=== PATIENT | male | born 1980 | race Caucasian/White ===

== ENCOUNTER 2021-10-30 07:48 | Inpatient (IN) | payer OTHER ==
[~2021-10-30] VITALS: Ht 177.8 cm; Wt 106.8 kg
[2021-10-30 08:19] LABS: CLARITY,URINE CLOUDY (Clear); COLOR,URINE YELLOW (Yellow); GLUCOSE, URINE 100 mg/dl (Neg); KETONES,URINE 15 mg/dl (Neg); LEUKOCYTE ESTERASE ,URINE NEGATIVE (Neg); NITRITES, URINE NEGATIVE (Neg); OCCULT BLOOD,URINE MODERATE (Neg); PROTEIN,URINE 30 mg/dl (Neg)
[2021-10-30 08:22] LABS: BASOPHILS % (AUTO) 0.2 % (0-1); EOSINOPHILS % (AUTO) 0 % (0-6); HEMATOCRIT 46.3 % (42.0-52.0); HEMOGLOBIN 16.1 g/dl (14.0-17.9); LYMPHOCYTES # (AUTO) 0.6 X10'3 (1.1-4.8); LYMPHOCYTES % (AUTO) 3.8 % (21-51); MEAN CORPUSCULAR HEMOGLOBIN 30.9 PG (27.0-31.0); MEAN CORPUSCULAR HGB CONC 34.7 g/dL (33.0-36.5); MEAN CORPUSCULAR VOLUME 89.3 FL (78-98); MEAN PLATELET VOLUME 7.6 FL (7.4-10.4); MONOCYTES # (AUTO) 0.8 X10'3 (0-0.9); MONOCYTES % (AUTO) 4.9 % (2-12); NEUTROPHILS # (AUTO) 14.6 X10'3 (1.8-7.7); NEUTROPHILS % (AUTO) 91.1 % (42-75); PLATELET COUNT 174 X10'3 (140-440); RED BLOOD COUNT 5.19 X10'6 (4.70-6.10); RED CELL DISTRIBUTION WIDTH 13.2 % (11.5-14.5); WHITE BLOOD COUNT 16.1 X10'3 (4.5-11.0)
[2021-10-30 08:28] LABS: UA COLLECTION TYPE CLN CATCH MIDSTREAM
[2021-10-30 08:29] LABS: HYALINE CASTS 0-3 /LPF (NEGATIVE); MUCUS STRANDS MODERATE /LPF (Neg); SQUAMOUS EPITHELIAL CELL,UR FEW /LPF (FEW)
[2021-10-30 08:30] LABS: BACTERIA,URINE 1+ /HPF (Neg); RBC,URINE 0-2 /HPF (0-2); WBC,URINE 0-4 /HPF (0-4)
[2021-10-30 08:35] LABS: ALANINE AMINOTRANSFERASE 61 U/L (12-78); ALBUMIN 4.1 G/DL (3.4-5.0); ALKALINE PHOSPHATASE 73 IU/L (46-116); ANION GAP 14 (8-16); ASPARTATE AMINO TRANSFERASE 28 U/L (10-37); BILIRUBIN,TOTAL 1.2 MG/DL (0.1-1.0); BLOOD UREA NITROGEN 22 MG/DL (7-18); BUN/CREATININE RATIO 15.3 (5.4-32.0); CHLORIDE 102 MMOL/L (99-107); CREATININE 1.44 MG/DL (0.60-1.10); GLUCOSE 140 MG/DL (70-104); LIPASE < 50 U/L (73-393); POTASSIUM 3.6 MMOL/L (3.5-5.1); SODIUM 140 MMOL/L (135-145); TOTAL CARBON DIOXIDE 24.3 MMOL/L (24-32); TOTAL PROTEIN 8.4 G/DL (6.4-8.2); eGFR 54 ML/MIN
[2021-10-30] MEDS ORDERED: piperacillin/tazo 3.375gm/50ml 50 ML IV ONE (08:40)
[2021-10-30] MEDS ORDERED: ondansetron/PF 4mg/2ml inj IV ONE (08:40)
[2021-10-30] MEDS ORDERED: ketorolac trometh. 30mg/ml inj. IV ONE (08:40)
[2021-10-30] MEDS ORDERED: normal saline 1000ML IV soln IVB ONE ×2 (08:40)
[2021-10-30] MEDS ORDERED: albuterol 2.5 MG/3 ML nebule NEB ONE (09:45)
[2021-10-30] MEDS ORDERED: magnesium 2GM in 50ml NS 50 ML IV PRN (10:20)
[2021-10-30] MEDS ORDERED: potassium Cl 20 mEq SR tablet PO PRN (10:20)
[2021-10-30] MEDS ORDERED: acetaminophen 650mg rectal suppository RC PRN (10:20)
[2021-10-30] MEDS ORDERED: bisacodyl 10mg suppository rectal RC PRN (10:20)
[2021-10-30] MEDS ORDERED: mag hydrox/Alum hydrox/simeth 30ml oral suspension PO PRN (10:20)
[2021-10-30] MEDS ORDERED: magnesium hydroxide 30ml (MOM) UD suspension PO PRN (10:20)
[2021-10-30] MEDS ORDERED: magnesium Cl slow-release 64mg tablet PO PRN (10:20)
[2021-10-30] MEDS ORDERED: HYDROcodone/acetaminophen 5mg/325mg tablet PO PRN (10:20)
[2021-10-30] MEDS ORDERED: HYDROmorphone/PF 0.2 MG/ML SYRINGE IV PRN (10:20)
[2021-10-30] MEDS ORDERED: acetaminophen 325mg tablet PO PRN (10:20)
[2021-10-30] MEDS ORDERED: magnesium 4gm in 100ml NS 100 ML IV PRN (10:20)
[2021-10-30] MEDS ORDERED: ondansetron 4mg rapidly disintigrating tab PO PRN (10:20)
[2021-10-30] MEDS ORDERED: NO HOME MEDS (10:26)
[2021-10-30 10:41] LABS: MAGNESIUM 1.6 MG/DL (1.5-2.4)
[2021-10-30] MEDS: metoclopramide 5 mg/ml inj IV PRN (11:30)
[2021-10-30] MEDS: piperacillin/tazo 3.375gm/50ml 50 ML IV SCH (16:45)
[2021-10-30] MEDS: normal saline 1000ml 1,000 ML IV SCH ×2 (16:45→18:58)
[2021-10-30] MEDS: ondansetron/PF 4mg/2ml inj IV PRN (16:56)
[2021-10-30] MEDS: HYDROmorphone inj. 0.5 MG/0.5 ML DISP.SYRIN IV PRN ×2 (17:04→21:39)
[2021-10-30] MEDS: acetaminophen 325mg tablet PO PRN (17:12)
[2021-10-30] MEDS: docusate sod 100mg capsule PO SCH (20:00)
[2021-10-30] MEDS: K and/or MAG REPLACEMENT MC SCH (20:00)
[2021-10-30] MEDS ORDERED: temazepam 15mg capsule PO PRN (21:00)
[2021-10-30 22:35] VITALS: BP 133/74
[2021-10-31] MEDS: normal saline 1000ml 1,000 ML IV SCH ×3 (00:19→15:28)
[2021-10-31] MEDS: piperacillin/tazo 3.375gm/50ml 50 ML IV SCH ×3 (00:20→15:27)
[2021-10-31] MEDS: HYDROmorphone inj. 0.5 MG/0.5 ML DISP.SYRIN IV PRN ×2 (01:36→05:26)
[2021-10-31] MEDS: ondansetron/PF 4mg/2ml inj IV PRN (05:28)
[2021-10-31 06:00] VITALS: BP 133/73
[2021-10-31 07:52] LABS: BASOPHILS % (AUTO) 0.2 % (0-1); EOSINOPHILS % (AUTO) 0 % (0-6); HEMOGLOBIN 12.9 g/dl (14.0-17.9); LYMPHOCYTES # (AUTO) 0.8 X10'3 (1.1-4.8); LYMPHOCYTES % (AUTO) 6.5 % (21-51); MEAN CORPUSCULAR HEMOGLOBIN 30.4 PG (27.0-31.0); MEAN CORPUSCULAR HGB CONC 33.9 g/dL (33.0-36.5); MEAN CORPUSCULAR VOLUME 89.5 FL (78-98); MEAN PLATELET VOLUME 8.4 FL (7.4-10.4); MONOCYTES # (AUTO) 0.8 X10'3 (0-0.9); MONOCYTES % (AUTO) 6.6 % (2-12); NEUTROPHILS # (AUTO) 10.2 X10'3 (1.8-7.7); NEUTROPHILS % (AUTO) 86.7 % (42-75); PLATELET COUNT 139 X10'3 (140-440); RED BLOOD COUNT 4.24 X10'6 (4.70-6.10); RED CELL DISTRIBUTION WIDTH 12.7 % (11.5-14.5); WHITE BLOOD COUNT 11.7 X10'3 (4.5-11.0)
[2021-10-31] MEDS: docusate sod 100mg capsule PO SCH ×2 (08:00→20:00)
[2021-10-31 08:08] LABS: ALANINE AMINOTRANSFERASE 43 U/L (12-78); ALBUMIN 2.9 G/DL (3.4-5.0); ALBUMIN/GLOBULIN RATIO 0.8 (1.1-1.5); ALKALINE PHOSPHATASE 56 IU/L (46-116); ANION GAP 12 (8-16); ASPARTATE AMINO TRANSFERASE 26 U/L (10-37); BILIRUBIN,TOTAL 1.1 MG/DL (0.1-1.0); BLOOD UREA NITROGEN 15 MG/DL (7-18); BUN/CREATININE RATIO 11.3 (5.4-32.0); CALCIUM 7.9 MG/DL (8.5-10.1); CHLORIDE 103 MMOL/L (99-107); CREATININE 1.33 MG/DL (0.60-1.10); GLUCOSE 118 MG/DL (70-104); MAGNESIUM 1.7 MG/DL (1.5-2.4); POTASSIUM 3.2 MMOL/L (3.5-5.1); SODIUM 139 MMOL/L (135-145); TOTAL CARBON DIOXIDE 23.6 MMOL/L (24-32); TOTAL PROTEIN 6.6 G/DL (6.4-8.2); eGFR 60 ML/MIN
[2021-10-31] MEDS: K and/or MAG REPLACEMENT MC SCH ×2 (08:46→20:00)
[2021-10-31] MEDS: metoclopramide 5 mg/ml inj IV PRN (08:47)
--- NOTE | 2021-10-31 08:58 | NUR ---
PAGER ID: [phone] MESSAGE: Jose Serrano [phone] Pt.'s abdominal pain not controlled by .5 mg dilaudid q4h. Do you want an IV breakthrough pain medication? Pt. NPO. Melanie [phone]
[2021-10-31] MEDS: HYDROmorphone 1 mg/ml syringe IV PRN ×3 (09:15→19:05)
[2021-10-31 10:00] VITALS: BP 148/67
[2021-10-31] MEDS: potassium CL 10mEq/100ml bag 100 ML IV PRN ×2 (12:38→15:28)
[2021-10-31 15:00] VITALS: BP 154/79
[2021-10-31] MEDS: acetaminophen 325mg tablet PO PRN (15:52)
[2021-10-31] MEDS: potassium Cl 20 mEq SR tablet PO PRN ×2 (15:52→20:44)
--- NOTE | 2021-10-31 17:12 | NUR ---
PAGER ID: [phone] MESSAGE: Jose Sanchez [id number] Pt. has had high fevers throughout day. Rectal Tylenol given while pt NPO earlier and was effective., however pt. received PO Tylenol 1hr ago for 102 fever and oral temp is now 102.8. Please advise. Melanie [phone]
[2021-10-31] MEDS: ibuprofen tablet 400 MG TABLET PO PRN ×2 (17:44→17:46)
[2021-10-31 18:00] VITALS: BP 120/70
--- NOTE | 2021-10-31 18:15 | NUR ---
Patient in room [facility]TH[facility] 4024. I have received report from ALTAF Navarro and had the opportunity to ask questions and assume patient care.
--- NOTE | 2021-10-31 18:21 | NUR ---
Gave report to Brandy SOLITARIO.
[2021-10-31 22:00] VITALS: BP 130/79
[2021-10-31] MEDS: HYDROcodone/acetaminophen 10/325mg tab PO PRN (23:08)
[2021-11-01] MEDS: normal saline 1000ml 1,000 ML IV SCH ×3 (00:30→16:50)
[2021-11-01] MEDS: piperacillin/tazo 3.375gm/50ml 50 ML IV SCH ×3 (00:39→16:20)
[2021-11-01 02:00] VITALS: BP 125/69
[2021-11-01] MEDS: HYDROcodone/acetaminophen 10/325mg tab PO PRN ×3 (04:55→16:23)
[2021-11-01 06:00] VITALS: BP 115/71
--- NOTE | 2021-11-01 06:07 | NUR ---
Problems reprioritized. Patient report given, questions answered & plan of care reviewed with ALTAF Navarro.
[2021-11-01 07:13] LABS: BASOPHILS % (AUTO) 0.1 % (0-1); EOSINOPHILS % (AUTO) 0.3 % (0-6); HEMATOCRIT 36.5 % (42.0-52.0); HEMOGLOBIN 12.5 g/dl (14.0-17.9); LYMPHOCYTES # (AUTO) 0.6 X10'3 (1.1-4.8); LYMPHOCYTES % (AUTO) 5.5 % (21-51); MEAN CORPUSCULAR HEMOGLOBIN 30.1 PG (27.0-31.0); MEAN CORPUSCULAR HGB CONC 34.2 g/dL (33.0-36.5); MEAN CORPUSCULAR VOLUME 88.1 FL (78-98); MEAN PLATELET VOLUME 8.3 FL (7.4-10.4); MONOCYTES # (AUTO) 0.9 X10'3 (0-0.9); MONOCYTES % (AUTO) 8.4 % (2-12); NEUTROPHILS # (AUTO) 8.8 X10'3 (1.8-7.7); NEUTROPHILS % (AUTO) 85.7 % (42-75); PLATELET COUNT 137 X10'3 (140-440); RED BLOOD COUNT 4.14 X10'6 (4.70-6.10); WHITE BLOOD COUNT 10.3 X10'3 (4.5-11.0)
[2021-11-01] MEDS: pantoprazole 40mg Tablet.DR PO SCH (07:13)
[2021-11-01] MEDS: docusate sod 100mg capsule PO SCH ×2 (07:42→20:00)
[2021-11-01 07:52] LABS: ALANINE AMINOTRANSFERASE 36 U/L (12-78); ALBUMIN 2.6 G/DL (3.4-5.0); ALBUMIN/GLOBULIN RATIO 0.7 (1.1-1.5); ALKALINE PHOSPHATASE 56 IU/L (46-116); ANION GAP 11 (8-16); ASPARTATE AMINO TRANSFERASE 26 U/L (10-37); BILIRUBIN,TOTAL 1.1 MG/DL (0.1-1.0); BLOOD UREA NITROGEN 15 MG/DL (7-18); CALCIUM 8.1 MG/DL (8.5-10.1); CHLORIDE 105 MMOL/L (99-107); CREATININE 1.15 MG/DL (0.60-1.10); GLUCOSE 107 MG/DL (70-104); POTASSIUM 3.2 MMOL/L (3.5-5.1); SODIUM 140 MMOL/L (135-145); TOTAL CARBON DIOXIDE 24.3 MMOL/L (24-32); TOTAL PROTEIN 6.3 G/DL (6.4-8.2); eGFR 70 ML/MIN
[2021-11-01] MEDS: potassium Cl 20 mEq SR tablet PO PRN ×4 (08:34→21:26)
[2021-11-01] MEDS: K and/or MAG REPLACEMENT MC SCH ×2 (08:37→20:00)
[2021-11-01 10:00] VITALS: BP 139/78
--- NOTE | 2021-11-01 10:28 | NUR ---
Nutrition consult: Pt admitted w/ acute diverticulitis with microperforation per EMR. Provided pt w/ written and verbal low fiber nutrition education w/ RD contact info. Addendum: 11/01/21 at [address] Amended: Links added.
[2021-11-01] MEDS ORDERED: ALBUTEROL INHALER 1 PUFF/90 MCG INHALER IH PRN (12:55)
[2021-11-01] MEDS: HYDROmorphone 1 mg/ml syringe IV PRN ×2 (12:58→21:26)
[2021-11-01 14:00] VITALS: BP 113/54
--- NOTE | 2021-11-01 18:08 | NUR ---
Gave report to Sydni SOLITARIO.
[2021-11-01 19:00] VITALS: BP 136/77
[2021-11-01 22:00] VITALS: BP 137/71
[2021-11-02] MEDS: acetaminophen 325mg tablet PO PRN (00:27)
[2021-11-02] MEDS: piperacillin/tazo 3.375gm/50ml 50 ML IV SCH ×3 (00:27→15:49)
[2021-11-02] MEDS: HYDROcodone/acetaminophen 10/325mg tab PO PRN ×4 (00:27→15:54)
[2021-11-02] MEDS: normal saline 1000ml 1,000 ML IV SCH ×2 (02:20→11:15)
[2021-11-02 06:50] LABS: BASOPHILS % (AUTO) 0.3 % (0-1); EOSINOPHILS % (AUTO) 0.2 % (0-6); HEMOGLOBIN 12.4 g/dl (14.0-17.9); LYMPHOCYTES # (AUTO) 0.7 X10'3 (1.1-4.8); LYMPHOCYTES % (AUTO) 7.5 % (21-51); MEAN CORPUSCULAR HGB CONC 34.6 g/dL (33.0-36.5); MEAN CORPUSCULAR VOLUME 89.6 FL (78-98); MEAN PLATELET VOLUME 8.7 FL (7.4-10.4); MONOCYTES # (AUTO) 0.9 X10'3 (0-0.9); MONOCYTES % (AUTO) 10.3 % (2-12); NEUTROPHILS # (AUTO) 7.4 X10'3 (1.8-7.7); NEUTROPHILS % (AUTO) 81.7 % (42-75); PLATELET COUNT 141 X10'3 (140-440); RED BLOOD COUNT 4.02 X10'6 (4.70-6.10); RED CELL DISTRIBUTION WIDTH 13.3 % (11.5-14.5)
[2021-11-02 07:17] LABS: ALANINE AMINOTRANSFERASE 35 U/L (12-78); ALBUMIN 2.4 G/DL (3.4-5.0); ALBUMIN/GLOBULIN RATIO 0.7 (1.1-1.5); ALKALINE PHOSPHATASE 58 IU/L (46-116); ANION GAP 8 (8-16); ASPARTATE AMINO TRANSFERASE 28 U/L (10-37); BILIRUBIN,TOTAL 0.7 MG/DL (0.1-1.0); BLOOD UREA NITROGEN 10 MG/DL (7-18); BUN/CREATININE RATIO 9.4 (5.4-32.0); CALCIUM 7.8 MG/DL (8.5-10.1); CHLORIDE 106 MMOL/L (99-107); CREATININE 1.06 MG/DL (0.60-1.10); GLUCOSE 115 MG/DL (70-104); MAGNESIUM 1.7 MG/DL (1.5-2.4); POTASSIUM 3.7 MMOL/L (3.5-5.1); SODIUM 140 MMOL/L (135-145); eGFR 77 ML/MIN
[2021-11-02 07:30] VITALS: BP 132/79
[2021-11-02] MEDS: K and/or MAG REPLACEMENT MC SCH (08:00)
[2021-11-02] MEDS: HYDROmorphone 1 mg/ml syringe IV PRN (08:21)
[2021-11-02] MEDS: docusate sod 100mg capsule PO SCH (08:44)
[2021-11-02] MEDS: pantoprazole 40mg Tablet.DR PO SCH (08:44)
[2021-11-02 10:59] VITALS: BP 129/74
[2021-11-02 15:00] VITALS: BP 129/87
--- NOTE | 2021-11-02 15:21 | NUR ---
PAGER ID: [phone] MESSAGE: [id number] Sanchez W: temp at 1500 was 98.3 thanks! portia [phone]
--- NOTE | 2021-11-02 15:56 | NUR ---
Page sent to RT.... [id number] Madonna Bradford: patient requesting PRN breathing treatment. thanks! :) portia
[2021-11-02] MEDS ORDERED: METR-159 PO (16:33)
[2021-11-02] MEDS ORDERED: ALBU6.7H9 IH (16:33)
[2021-11-02] MEDS ORDERED: CIPR-447 PO (16:33)
--- NOTE | 2021-11-02 16:41 | NUR ---
PAGER ID: [phone] MESSAGE: [id number] Madonna Bradford: please call regarding this DC. thanks! portia [phone]
[2021-11-02] MEDS ORDERED: HYDR-3965 PO (16:47)
--- NOTE | 2021-11-02 17:14 | NUR ---
Patient stable and appropriate for discharge home with family. IV removed, all belongings taken from room. New RX e-scripted to preferred pharmacy, pain medication RX given to patient. All discharge instructions and education given and reviewed with patient, all questions answered.
== END 2021-11-02 17:10 | disposition home or self-care (01) | DRG 392 ==
LOC: ER 07:48 → ED HOLD 10:23 → ORTHO 4S 22:20
PROVIDERS: ADMIT Family Medicine; ATTEND Family Medicine
DX: K57.20 Diverticulitis of large intestine with perforation and abscess without bleeding (principal); N17.9 Acute kidney failure, unspecified; Z20.822 Contact with and (suspected) exposure to COVID-19; F17.200 Nicotine dependence, unspecified, uncomplicated; E87.6 Hypokalemia; N18.9 Chronic kidney disease, unspecified; R06.00 Dyspnea, unspecified
CPT/HCPCS: 36415; 71045; 74176; 80053; 81001; 82948; 83605; 83690; 83735; 84145; 85025; 87040; 87081; 87635; 94640; 99285; G0378; J1170; J1885; J2405; J2543; J2765; J3480; J7030

== ENCOUNTER 2021-12-16 10:10 | Inpatient (IN) | payer OTHER ==
[~2021-12-16] VITALS: Ht 177.8 cm; Wt 95.1 kg
[~2021-12-16 10:10] MED LIST: ALBU6.7H9 IH
[2021-12-16 10:58] LABS: CLARITY,URINE CLEAR (Clear); GLUCOSE, URINE NEGATIVE (Neg); KETONES,URINE >=80 mg/dl (Neg); LEUKOCYTE ESTERASE ,URINE NEGATIVE (Neg); OCCULT BLOOD,URINE TRACE-INTACT (Neg); PROTEIN,URINE 100 mg/dl (Neg)
[2021-12-16 11:03] LABS: BASOPHILS % (AUTO) 0.3 % (0-1); EOSINOPHILS % (AUTO) 0.2 % (0-6); HEMATOCRIT 43.1 % (42.0-52.0); HEMOGLOBIN 14.8 g/dl (14.0-17.9); LYMPHOCYTES # (AUTO) 0.9 X10'3 (1.1-4.8); LYMPHOCYTES % (AUTO) 7.4 % (21-51); MEAN CORPUSCULAR HEMOGLOBIN 30.8 PG (27.0-31.0); MEAN CORPUSCULAR HGB CONC 34.3 g/dL (33.0-36.5); MEAN CORPUSCULAR VOLUME 89.7 FL (78-98); MEAN PLATELET VOLUME 7.2 FL (7.4-10.4); MONOCYTES # (AUTO) 0.3 X10'3 (0-0.9); MONOCYTES % (AUTO) 2.4 % (2-12); NEUTROPHILS # (AUTO) 11.1 X10'3 (1.8-7.7); NEUTROPHILS % (AUTO) 89.7 % (42-75); PLATELET COUNT 225 X10'3 (140-440); RED BLOOD COUNT 4.81 X10'6 (4.70-6.10); RED CELL DISTRIBUTION WIDTH 14.3 % (11.5-14.5); WHITE BLOOD COUNT 12.4 X10'3 (4.5-11.0)
[2021-12-16 11:05] LABS: COLOR,URINE BROWN (Yellow); UA COLLECTION TYPE CLN CATCH MIDSTREAM
[2021-12-16 11:06] LABS: BACTERIA,URINE NONE SEEN /HPF (Neg); MUCUS STRANDS FEW /LPF (Neg); NITRITES, URINE NEGATIVE (Neg); RBC,URINE 0-2 /HPF (0-2); SQUAMOUS EPITHELIAL CELL,UR NONE SEEN /LPF (FEW); WBC,URINE 0-4 /HPF (0-4)
[2021-12-16 11:30] LABS: ALANINE AMINOTRANSFERASE 35 U/L (12-78); ALBUMIN 3.9 G/DL (3.4-5.0); ALKALINE PHOSPHATASE 67 IU/L (46-116); ANION GAP 9 (8-16); ASPARTATE AMINO TRANSFERASE 20 U/L (10-37); BILIRUBIN,TOTAL 1.4 MG/DL (0.1-1.0); BLOOD UREA NITROGEN 14 MG/DL (7-18); BUN/CREATININE RATIO 11.9 (5.4-32.0); CALCIUM 9.1 MG/DL (8.5-10.1); CHLORIDE 104 MMOL/L (99-107); CREATININE 1.18 MG/DL (0.60-1.10); GLUCOSE 106 MG/DL (70-104); LIPASE < 50 U/L (73-393); POTASSIUM 4.1 MMOL/L (3.5-5.1); SODIUM 139 MMOL/L (135-145); TOTAL CARBON DIOXIDE 25.6 MMOL/L (24-32); TOTAL PROTEIN 7.9 G/DL (6.4-8.2); eGFR 68 ML/MIN
[2021-12-16] MEDS ORDERED: ondansetron/PF 4mg/2ml inj IV ONE (12:25)
[2021-12-16] MEDS ORDERED: morphine 4 MG/ML inj SYRINge IV ONE ×2 (12:25→13:40)
[2021-12-16] MEDS ORDERED: normal saline 1000ML IV soln IVB ONE (12:25)
[2021-12-16] MEDS ORDERED: piperacillin/tazo 3.375gm/50ml 50 ML IV ONE (14:25)
[2021-12-16] MEDS ORDERED: acetaminophen 650mg rectal suppository RC PRN (14:40)
[2021-12-16] MEDS ORDERED: magnesium Cl slow-release 64mg tablet PO PRN (14:40)
[2021-12-16] MEDS ORDERED: POTASSIUM BICARB 20meq eff tab 20 MEQ TABLET.EFF PO PRN ×2 (14:40)
[2021-12-16] MEDS ORDERED: mag hydrox/Alum hydrox/simeth 30ml oral suspension PO PRN (14:40)
[2021-12-16] MEDS ORDERED: potassium CL 10mEq/100ml bag 100 ML IV PRN (14:40)
[2021-12-16] MEDS ORDERED: magnesium 4gm in 100ml NS 100 ML IV PRN (14:40)
[2021-12-16] MEDS ORDERED: morphine 2 MG/ML inj. syringe IV PRN ×2 (14:40)
[2021-12-16] MEDS ORDERED: acetaminophen 325mg tablet PO PRN (14:40)
[2021-12-16] MEDS ORDERED: HYDROcodone/acetaminophen 5mg/325mg tablet PO PRN (14:40)
[2021-12-16] MEDS ORDERED: magnesium hydroxide 30ml (MOM) UD suspension PO PRN (14:40)
[2021-12-16] MEDS ORDERED: bisacodyl 10mg suppository rectal RC PRN (14:40)
[2021-12-16] MEDS ORDERED: magnesium 2GM in 50ml NS 50 ML IV PRN (14:40)
[2021-12-16] MEDS ORDERED: diphenhydrAMINE 50 mg/ml inj IV PRN (14:40)
[2021-12-16 15:15] LABS: HEMOGLOBIN A1C 5.5 % (4.5-6.2)
[2021-12-16] MEDS: normal saline 1000ml 1,000 ML IV SCH ×2 (16:24→20:23)
--- NOTE | 2021-12-16 16:25 | NUR ---
GAVE REPORT TO ALTAF STEVE
[2021-12-16] MEDS: HYDROcodone/acetaminophen 10/325mg tab PO PRN (17:21)
[2021-12-16 18:00] VITALS: BP 130/73
[2021-12-16] MEDS ORDERED: piperacillin/tazo 3.375gm/50ml 50 ML IV SCH (20:00)
[2021-12-16] MEDS: K and/or MAG REPLACEMENT MC SCH (20:00)
[2021-12-16] MEDS: docusate sod 100mg capsule PO SCH (20:00)
[2021-12-16] MEDS: lactobacillus rhamnosus 10,000 MMU CELLS/CAPSULE PO SCH (20:21)
[2021-12-16] MEDS: heparin, porcine 5000 units/ml vial SQ SCH (20:22)
[2021-12-16] MEDS ORDERED: ALBUTEROL INHALER 1 PUFF/90 MCG INHALER IH PRN (20:30)
[2021-12-16 22:00] VITALS: BP 144/64
[2021-12-16] MEDS: piperacillin/tazo 3.375gm/50ml 50 ML IV SCH (22:12)
[2021-12-17] MEDS: ondansetron/PF 4mg/2ml inj IV PRN ×3 (00:07→16:50)
[2021-12-17] MEDS: HYDROmorphone 1 mg/ml syringe IV PRN ×4 (00:11→21:04)
[2021-12-17] MEDS: acetaminophen 325mg tablet PO PRN ×3 (01:56→17:58)
[2021-12-17] MEDS: piperacillin/tazo 3.375gm/50ml 50 ML IV SCH ×3 (05:49→22:05)
[2021-12-17 06:00] VITALS: BP 132/66
[2021-12-17 06:40] LABS: BASOPHILS % (AUTO) 0.2 % (0-1); EOSINOPHILS % (AUTO) 0 % (0-6); HEMATOCRIT 38.9 % (42.0-52.0); HEMOGLOBIN 13.1 g/dl (14.0-17.9); LYMPHOCYTES # (AUTO) 0.7 X10'3 (1.1-4.8); LYMPHOCYTES % (AUTO) 4.8 % (21-51); MEAN CORPUSCULAR HEMOGLOBIN 30.1 PG (27.0-31.0); MEAN CORPUSCULAR HGB CONC 33.8 g/dL (33.0-36.5); MEAN CORPUSCULAR VOLUME 89.2 FL (78-98); MEAN PLATELET VOLUME 8.6 FL (7.4-10.4); MONOCYTES # (AUTO) 0.4 X10'3 (0-0.9); NEUTROPHILS # (AUTO) 13.2 X10'3 (1.8-7.7); PLATELET COUNT 205 X10'3 (140-440); RED BLOOD COUNT 4.36 X10'6 (4.70-6.10); RED CELL DISTRIBUTION WIDTH 14.4 % (11.5-14.5); WHITE BLOOD COUNT 14.3 X10'3 (4.5-11.0)
[2021-12-17 07:03] LABS: ALANINE AMINOTRANSFERASE 26 U/L (12-78); ALBUMIN 3.1 G/DL (3.4-5.0); ALBUMIN/GLOBULIN RATIO 0.7 (1.1-1.5); ALKALINE PHOSPHATASE 67 IU/L (46-116); ANION GAP 13 (8-16); ASPARTATE AMINO TRANSFERASE 16 U/L (10-37); BILIRUBIN,TOTAL 1.1 MG/DL (0.1-1.0); BLOOD UREA NITROGEN 12 MG/DL (7-18); BUN/CREATININE RATIO 10.7 (5.4-32.0); CALCIUM 8.5 MG/DL (8.5-10.1); CHLORIDE 103 MMOL/L (99-107); CHOL/HDL RATIO 4.6 (0.00-4.99); CHOLESTEROL 151 MG/DL (0-200); CREATININE 1.12 MG/DL (0.60-1.10); GLUCOSE 89 MG/DL (70-104); HDL CHOLESTEROL 33 MG/DL (35-60); LDL CHOLESTEROL 63 MG/DL (50-100); MAGNESIUM 1.7 MG/DL (1.5-2.4); PHOSPHORUS 2.7 MG/DL (2.3-4.5); POTASSIUM 3.5 MMOL/L (3.5-5.1); SODIUM 137 MMOL/L (135-145); TOTAL CARBON DIOXIDE 20.8 MMOL/L (24-32); TOTAL PROTEIN 7.3 G/DL (6.4-8.2); TRIGLYCERIDES 126 MG/DL (20-135); eGFR 73 ML/MIN
--- NOTE | 2021-12-17 07:10 | NUR ---
Patient in room [facility]TH[facility] 4023. I have received report from manuela rn and had the opportunity to ask questions and assume patient care.
[2021-12-17] MEDS: docusate sod 100mg capsule PO SCH ×2 (07:54→20:00)
[2021-12-17] MEDS: lactobacillus rhamnosus 10,000 MMU CELLS/CAPSULE PO SCH ×2 (07:57→19:44)
[2021-12-17] MEDS: heparin, porcine 5000 units/ml vial SQ SCH ×2 (07:57→19:45)
[2021-12-17] MEDS: K and/or MAG REPLACEMENT MC SCH ×2 (08:00→20:00)
[2021-12-17] MEDS: normal saline 1000ml 1,000 ML IV SCH ×2 (10:40→20:40)
[2021-12-17 10:54] VITALS: BP 129/66
[2021-12-17 13:31] VITALS: BP 112/67
--- NOTE | 2021-12-17 14:00 | NUR ---
called pop and let him know of pt fever, antibiotics he is on, and about consulting him for surgery. states no surgery for now, seeing if antibiotics help with inflammation.
--- NOTE | 2021-12-17 17:48 | NUR ---
Page Sent promotional table spacer PAGER ID: [phone] MESSAGE: [id number] Sanchez, pt has spiked another fever of 102.1, pt had micro perf back in october. do you want a CT scan with contrast.
[2021-12-17 18:00] VITALS: BP 136/73
--- NOTE | 2021-12-17 18:18 | NUR ---
Problems reprioritized. Patient report given, questions answered & plan of care reviewed with manuela marquez.
[2021-12-17 22:00] VITALS: BP 128/61
[2021-12-18] MEDS: HYDROmorphone 1 mg/ml syringe IV PRN ×5 (01:08→23:44)
[2021-12-18] MEDS: ondansetron/PF 4mg/2ml inj IV PRN ×2 (05:54→16:46)
[2021-12-18] MEDS: piperacillin/tazo 3.375gm/50ml 50 ML IV SCH ×3 (05:55→21:57)
[2021-12-18 06:00] VITALS: BP 157/78
[2021-12-18 06:10] LABS: BASOPHILS % (AUTO) 0.3 % (0-1); EOSINOPHILS % (AUTO) 0.2 % (0-6); HEMATOCRIT 36.8 % (42.0-52.0); HEMOGLOBIN 12.6 g/dl (14.0-17.9); LYMPHOCYTES # (AUTO) 0.9 X10'3 (1.1-4.8); LYMPHOCYTES % (AUTO) 9.5 % (21-51); MEAN CORPUSCULAR HEMOGLOBIN 30.6 PG (27.0-31.0); MEAN CORPUSCULAR HGB CONC 34.3 g/dL (33.0-36.5); MEAN CORPUSCULAR VOLUME 89.4 FL (78-98); MEAN PLATELET VOLUME 8.2 FL (7.4-10.4); MONOCYTES # (AUTO) 0.5 X10'3 (0-0.9); MONOCYTES % (AUTO) 4.8 % (2-12); NEUTROPHILS # (AUTO) 8.3 X10'3 (1.8-7.7); NEUTROPHILS % (AUTO) 85.2 % (42-75); PLATELET COUNT 200 X10'3 (140-440); RED BLOOD COUNT 4.12 X10'6 (4.70-6.10); RED CELL DISTRIBUTION WIDTH 13.9 % (11.5-14.5); WHITE BLOOD COUNT 9.8 X10'3 (4.5-11.0)
[2021-12-18 06:19] LABS: ALANINE AMINOTRANSFERASE 19 U/L (12-78); ALBUMIN 2.8 G/DL (3.4-5.0); ALBUMIN/GLOBULIN RATIO 0.6 (1.1-1.5); ALKALINE PHOSPHATASE 69 IU/L (46-116); ANION GAP 10 (8-16); ASPARTATE AMINO TRANSFERASE 16 U/L (10-37); BLOOD UREA NITROGEN 14 MG/DL (7-18); BUN/CREATININE RATIO 13.5 (5.4-32.0); CALCIUM 8.8 MG/DL (8.5-10.1); CHLORIDE 103 MMOL/L (99-107); CREATININE 1.04 MG/DL (0.60-1.10); GLUCOSE 93 MG/DL (70-104); MAGNESIUM 1.9 MG/DL (1.5-2.4); PHOSPHORUS 2.5 MG/DL (2.3-4.5); POTASSIUM 3.3 MMOL/L (3.5-5.1); SODIUM 137 MMOL/L (135-145); TOTAL CARBON DIOXIDE 24.3 MMOL/L (24-32); TOTAL PROTEIN 7.2 G/DL (6.4-8.2); eGFR 79 ML/MIN
[2021-12-18] MEDS: normal saline 1000ml 1,000 ML IV SCH ×2 (06:40→16:40)
--- NOTE | 2021-12-18 06:54 | NUR ---
Patient in room [facility]TH[facility] 4023. I have received report from manuela rn and had the opportunity to ask questions and assume patient care.
[2021-12-18] MEDS: K and/or MAG REPLACEMENT MC SCH ×2 (08:00→20:00)
[2021-12-18] MEDS: lactobacillus rhamnosus 10,000 MMU CELLS/CAPSULE PO SCH ×2 (08:12→20:00)
[2021-12-18] MEDS: heparin, porcine 5000 units/ml vial SQ SCH ×2 (08:12→20:44)
[2021-12-18] MEDS: docusate sod 100mg capsule PO SCH ×2 (08:21→20:00)
[2021-12-18] MEDS: HYDROcodone/acetaminophen 10/325mg tab PO PRN (08:25)
[2021-12-18] MEDS ORDERED: potassium Cl 20 mEq SR tablet PO PRN ×2 (08:40)
[2021-12-18 10:42] VITALS: BP 124/78
--- NOTE | 2021-12-18 16:16 | NUR ---
due to pt load and being a 5:1 ratio with pts on tele, medication was given late. Addendum: 12/18/21 at 1617 by Angelica Correa RN due to pt load and being a 5:1 ratio with pts on tele, medication was given late. charge nurse is aware
--- NOTE | 2021-12-18 18:25 | NUR ---
Problems reprioritized. Patient report given, questions answered & plan of care reviewed with José Miguel marquez.
[2021-12-18 18:30] VITALS: BP 126/78
[2021-12-18 18:50] VITALS: BP 126/78
[2021-12-18] MEDS ORDERED: albuterol 2.5 MG/3 ML nebule NEB PRN (20:38)
--- NOTE | 2021-12-18 21:57 | NUR ---
Zosyn held as last dose was given nearly 2 hours late and it was clamped. Talked to RX but she didnt want to change the times on the MAR she said to skip the next one>
[2021-12-18 22:14] VITALS: BP 126/78
[2021-12-18] MEDS: acetaminophen 325mg tablet PO PRN (22:20)
[2021-12-18] MEDS: proCHLORperazine 10 MG/2 ml inj IV PRN (23:43)
[2021-12-19] MEDS: normal saline 1000ml 1,000 ML IV SCH ×3 (01:57→22:24)
[2021-12-19 02:00] VITALS: BP 127/84
[2021-12-19] MEDS: HYDROmorphone 1 mg/ml syringe IV PRN ×5 (03:25→12:49)
[2021-12-19] MEDS: ondansetron/PF 4mg/2ml inj IV PRN ×2 (03:32→14:48)
[2021-12-19] MEDS: piperacillin/tazo 3.375gm/50ml 50 ML IV SCH ×3 (04:19→22:24)
[2021-12-19] MEDS: proCHLORperazine 10 MG/2 ml inj IV PRN ×2 (05:43→20:15)
[2021-12-19 06:00] VITALS: BP 140/73
[2021-12-19 06:29] LABS: BASOPHILS % (AUTO) 0.2 % (0-1); EOSINOPHILS # (AUTO) 0.1 X10'3 (0-0.9); EOSINOPHILS % (AUTO) 0.8 % (0-6); HEMATOCRIT 38.6 % (42.0-52.0); HEMOGLOBIN 13.2 g/dl (14.0-17.9); LYMPHOCYTES # (AUTO) 0.9 X10'3 (1.1-4.8); LYMPHOCYTES % (AUTO) 10.2 % (21-51); MEAN CORPUSCULAR HEMOGLOBIN 30.7 PG (27.0-31.0); MEAN CORPUSCULAR HGB CONC 34.2 g/dL (33.0-36.5); MEAN CORPUSCULAR VOLUME 89.9 FL (78-98); MEAN PLATELET VOLUME 8.1 FL (7.4-10.4); MONOCYTES # (AUTO) 0.5 X10'3 (0-0.9); MONOCYTES % (AUTO) 6.2 % (2-12); NEUTROPHILS # (AUTO) 6.9 X10'3 (1.8-7.7); NEUTROPHILS % (AUTO) 82.6 % (42-75); PLATELET COUNT 224 X10'3 (140-440); RED CELL DISTRIBUTION WIDTH 14.1 % (11.5-14.5); WHITE BLOOD COUNT 8.3 X10'3 (4.5-11.0)
[2021-12-19 06:34] LABS: ALANINE AMINOTRANSFERASE 16 U/L (12-78); ALBUMIN 2.6 G/DL (3.4-5.0); ALBUMIN/GLOBULIN RATIO 0.6 (1.1-1.5); ALKALINE PHOSPHATASE 66 IU/L (46-116); ANION GAP 7 (8-16); ASPARTATE AMINO TRANSFERASE 17 U/L (10-37); BLOOD UREA NITROGEN 13 MG/DL (7-18); BUN/CREATININE RATIO 16.3 (5.4-32.0); CALCIUM 8.6 MG/DL (8.5-10.1); CHLORIDE 104 MMOL/L (99-107); GLUCOSE 101 MG/DL (70-104); MAGNESIUM 1.9 MG/DL (1.5-2.4); PHOSPHORUS 4.3 MG/DL (2.3-4.5); POTASSIUM 3.6 MMOL/L (3.5-5.1); SODIUM 134 MMOL/L (135-145); TOTAL CARBON DIOXIDE 22.6 MMOL/L (24-32); TOTAL PROTEIN 7.1 G/DL (6.4-8.2); eGFR > 90 ML/MIN
--- NOTE | 2021-12-19 06:45 | NUR ---
Patient in room [facility]TH[facility] 4023. I have received report from ALTAF Valdez and had the opportunity to ask questions and assume patient care.
--- NOTE | 2021-12-19 06:47 | NUR ---
Problems reprioritized. Patient report given, questions answered & plan of care reviewed with Katrin. Addendum: 12/19/21 at 0647 by Carlos Mukherjee RN Amended: Links added.
[2021-12-19 07:34] LABS: BILIRUBIN,TOTAL 0.6 MG/DL (0.1-1.0)
[2021-12-19] MEDS: K and/or MAG REPLACEMENT MC SCH ×2 (08:00→19:08)
[2021-12-19] MEDS: docusate sod 100mg capsule PO SCH ×2 (08:00→20:15)
[2021-12-19] MEDS: lactobacillus rhamnosus 10,000 MMU CELLS/CAPSULE PO SCH ×2 (08:19→20:15)
[2021-12-19] MEDS: heparin, porcine 5000 units/ml vial SQ SCH ×2 (08:22→20:22)
[2021-12-19 10:00] VITALS: BP 124/75
[2021-12-19] MEDS: lactose-reduced food (Ensure High Protein) 237ml bottle PO SCH ×2 (13:00→18:00)
[2021-12-19] MEDS: HYDROcodone/acetaminophen 10/325mg tab PO PRN ×2 (14:40→20:20)
[2021-12-19 18:00] VITALS: BP 133/81
--- NOTE | 2021-12-19 18:48 | NUR ---
Problems reprioritized. Patient report given, questions answered & plan of care reviewed with ALTAF Mishra.
[2021-12-19 22:00] VITALS: BP 144/81
[2021-12-20] MEDS: HYDROcodone/acetaminophen 10/325mg tab PO PRN (04:13)
[2021-12-20] MEDS: proCHLORperazine 10 MG/2 ml inj IV PRN (04:13)
[2021-12-20 05:00] VITALS: BP 133/82
--- NOTE | 2021-12-20 07:04 | NUR ---
Report received from the day shift Charge Nurse José Miguel. Procurement Inspector nurse went home without giving me a full report or perhaps forgotten to give me report
[2021-12-20] MEDS: lactobacillus rhamnosus 10,000 MMU CELLS/CAPSULE PO SCH (07:22)
[2021-12-20] MEDS: docusate sod 100mg capsule PO SCH (07:22)
[2021-12-20] MEDS: piperacillin/tazo 3.375gm/50ml 50 ML IV SCH (07:23)
[2021-12-20] MEDS: heparin, porcine 5000 units/ml vial SQ SCH (07:23)
[2021-12-20 07:33] LABS: BASOPHILS % (AUTO) 0.2 % (0-1); EOSINOPHILS # (AUTO) 0.2 X10'3 (0-0.9); EOSINOPHILS % (AUTO) 3.8 % (0-6); HEMOGLOBIN 11.3 g/dl (14.0-17.9); LYMPHOCYTES # (AUTO) 0.7 X10'3 (1.1-4.8); LYMPHOCYTES % (AUTO) 11.1 % (21-51); MEAN CORPUSCULAR HEMOGLOBIN 30.1 PG (27.0-31.0); MEAN CORPUSCULAR HGB CONC 34.1 g/dL (33.0-36.5); MEAN CORPUSCULAR VOLUME 88.2 FL (78-98); MEAN PLATELET VOLUME 8.1 FL (7.4-10.4); MONOCYTES # (AUTO) 0.5 X10'3 (0-0.9); MONOCYTES % (AUTO) 8.5 % (2-12); NEUTROPHILS # (AUTO) 4.5 X10'3 (1.8-7.7); NEUTROPHILS % (AUTO) 76.4 % (42-75); PLATELET COUNT 197 X10'3 (140-440); RED BLOOD COUNT 3.75 X10'6 (4.70-6.10); RED CELL DISTRIBUTION WIDTH 14.2 % (11.5-14.5); WHITE BLOOD COUNT 5.9 X10'3 (4.5-11.0)
[2021-12-20 07:52] LABS: ALANINE AMINOTRANSFERASE 16 U/L (12-78); ALBUMIN 2.3 G/DL (3.4-5.0); ALBUMIN/GLOBULIN RATIO 0.6 (1.1-1.5); ALKALINE PHOSPHATASE 54 IU/L (46-116); ANION GAP 9 (8-16); ASPARTATE AMINO TRANSFERASE 18 U/L (10-37); BILIRUBIN,TOTAL 0.6 MG/DL (0.1-1.0); BLOOD UREA NITROGEN 9 MG/DL (7-18); BUN/CREATININE RATIO 11.3 (5.4-32.0); CALCIUM 8.2 MG/DL (8.5-10.1); CHLORIDE 106 MMOL/L (99-107); GLUCOSE 104 MG/DL (70-104); MAGNESIUM 1.5 MG/DL (1.5-2.4); PHOSPHORUS 3.2 MG/DL (2.3-4.5); POTASSIUM 3.1 MMOL/L (3.5-5.1); SODIUM 142 MMOL/L (135-145); TOTAL CARBON DIOXIDE 26.8 MMOL/L (24-32); eGFR > 90 ML/MIN
[2021-12-20] MEDS: K and/or MAG REPLACEMENT MC SCH (08:00)
[2021-12-20] MEDS ORDERED: POTA-207 PO (08:47)
[2021-12-20] MEDS ORDERED: ONDA4TAB12 PO (08:47)
[2021-12-20] MEDS ORDERED: AMOX-580 PO (08:47)
[2021-12-20] MEDS ORDERED: HYDR-3972 PO (08:47)
--- NOTE | 2021-12-20 09:10 | NUR ---
I offered Potassium 20 mEq pill to the patient and explained to him that we need to replace the potassium becaise his K level this am was 3.1 which is low. Patient refused the K pill. Patient stated he had issue with taking the K pill and he had to take the K pill that dissolve and fizz. I told him I can change the order into the fizzy one and order it from the pharmacy. Patient still refused it and said "I had some Potassium at home!" He told me "I will just take it at home. Discharge medication order also has potassium PO ordered.
--- NOTE | 2021-12-20 10:10 | NUR ---
Patient was discharged home. Discharge instructions were given to patient, patient verbalized understanding of all instructions made. Peripheral IV catheter removed, tip intact. Patient's new prescriptions were e-sent to his preferred pharmacy on file. Instructed patient to ensure he has all his belongings with him before leaving. Patient was also instructed to follow up with his primary care provider as well aside from postop follow up with Dr. Leggett.
== END 2021-12-20 10:10 | disposition home or self-care (01) | DRG 391 ==
LOC: ER 10:11 → ED HOLD 14:46 → EDBEDREQ 16:10 → ORTHO 4S 17:14
PROVIDERS: ADMIT Family Medicine; ATTEND Family Medicine
DX: K57.20 Diverticulitis of large intestine with perforation and abscess without bleeding (principal); N17.0 Acute kidney failure with tubular necrosis; E86.0 Dehydration; F12.90 Cannabis use, unspecified, uncomplicated; E87.6 Hypokalemia; F17.210 Nicotine dependence, cigarettes, uncomplicated; Z20.822 Contact with and (suspected) exposure to COVID-19; Z28.310 Unvaccinated for COVID-19; Z79.899 Other long term (current) drug therapy
CPT/HCPCS: 36415; 74176; 80053; 80061; 81001; 83036; 83605; 83690; 83735; 84100; 85025; 87040; 87081; 96374; 96375; 96376; 99285; A6258; G0378; J0780; J1170; J1644; J2270; J2405; J2543; J3480; J7030; J7040